=== PATIENT | male | born 1985 | race African-American/Black ===

== ENCOUNTER 2021-09-28 17:34 | Emergency (ER) | payer SELFPAY ==
[~2021-09-28] VITALS: Ht 170.2 cm; Wt 79.5 kg
[2021-09-28 17:52] VITALS: TEMP 98.6
[2021-09-28] MEDS ORDERED: PREDNISONE20 MG PO (19:52)
[2021-09-28 20:02] VITALS: BP 150/107; PULSE 70
== END 2021-09-28 20:02 | disposition home or self-care (01) ==
LOC: COL.ER 17:34
DX: H10.13 Acute atopic conjunctivitis, bilateral (principal); Z28.310 Unvaccinated for COVID-19
CPT/HCPCS: J7512